=== PATIENT | male | born 1975 | race Caucasian/White ===

== ENCOUNTER → 2016-07-01 | Outpatient (CLI) | payer BC ==
[~2016-07-01] MED LIST: KLONOPIN 0.5MG0.5 MG PO; LAMICTAL200 MG PO; PERCOCET 325 MG1 TA2 PO; REMERON 15M15 MG/TA1 PO
== END ==
LOC: BHSO 16:17
DX: F41.1 Generalized anxiety disorder (principal)

== ENCOUNTER → 2017-01-18 | Outpatient (CLI) | payer BC | LOC: BHSO 16:17 | DX: F41.1 Generalized anxiety disorder (principal) ==

== ENCOUNTER → 2017-09-08 | Outpatient (CLI) | payer BC | LOC: BHSO 14:13 | DX: F33.42 Major depressive disorder, recurrent, in full remission (principal) | CPT/HCPCS: G0463 ==